=== PATIENT | female | born 1965 ===

== ENCOUNTER 2016-11-15 17:58 | Emergency (ER) | payer MEDICAID ==
[2016-11-15 18:13] VITALS: RESP 18; TEMP 98.2; BMI 27.4
[2016-11-15] MEDS ORDERED: Morphine 4 mg/ml ISec ONE (18:16)
[2016-11-15] MEDS ORDERED: Morphine 4 mg/ml ISec IM STA (18:19)
--- NOTE | 2016-11-15 18:39 | ED PDOC ---
Arrival/HPI - General Chief Complaint: Lower Extremity Problem/Injury Time Seen by Provider: 11/15/16 18:11 Historian: Patient - History of Present Illness Narrative History of Present Illness (Text): 11/15/16 18:36 this is a 51yo female who present with complaint of throbbing left leg pain s/p trauma minutes [employer]. States she slipped while coming down stairs and fell down unknown number of stairs. She notes that her left leg spread to the left, while her body landed towards the right when she fell down. She states pain radiates from her left knee to her foot. she denies LOC. Denies headache, focal weakness , urinary/fecal incontinence, nausea, vomiting, any other complaint. 11/15/16 18:38 Past Medical History - Provider Review Nursing Documentation Reviewed: Yes - Cardiac Hx Cardiac Disorders: Yes Hx Peripheral Vascular Disease: No - Pulmonary Hx Respiratory Disorders: No Hx Tuberculosis: No - Neurological Hx Migraine: Yes Hx Seizures: Yes Other/Comment: BRAIN TUMOR - HEENT Hx HEENT Disorder: No - Renal Hx Renal Disorder: No - Endocrine/Metabolic Hx Endocrine Disorders: No - Hematological/Oncological Hx Anemia: Yes - Integumentary Hx Dermatological Disorder: No - Musculoskeletal/Rheumatological Hx Arthritis: Yes Hx Back Pain: Yes Hx Fractures: Yes (LUMBAR SPINE) Other/Comment: NECK PAIN - Gastrointestinal Hx Gastrointestinal Disorders: No - Genitourinary/Gynecological Hx Genitourinary Disorders: No - Psychiatric Hx Psychophysiologic Disorder: No Hx Substance Use: No - Surgical History Hx Section: Yes Hx Hysterectomy: Yes Hx Tubal Ligation: Yes - Anesthesia Hx Anesthesia: Yes Family/Social History - Physician Review Nursing Documentation Reviewed: Yes Family/Social History: Unknown Family HX Smoking Status: Former Smoker Hx Alcohol Use: Yes Hx Substance Use: No Allergies/Home Meds Allergies/Adverse Reactions: Allergies iron Allergy (Verified 11/15/16 18:01) ANAPHYLAXIS all fruit Allergy (Uncoded 11/15/16 18:01) RASH fruit Allergy (Uncoded 11/15/16 18:01) ANAPHYLAXIS seafood Allergy (Uncoded 11/15/16 18:01) ANAPHYLAXIS Home Medications: Home Meds Medication Instructions Recorded Confirmed Acetaminophen/Oxycodone Hydr 1 tab PO Q6H PRN 05/23/16 11/15/16 [Percocet 10/325 mg Tab] Ibuprofen [Motrin] 800 mg PO Q4H PRN 05/23/16 11/15/16 Review of Systems - Physician Review All systems were reviewed & negative as marked: Yes - Review of Systems Constitutional: Normal Eyes: Normal ENT: Normal Respiratory: Normal Cardiovascular: Normal Gastrointestinal: Normal Genitourinary Female: Normal Musculoskeletal: Arthralgias (Left leg pain) Skin: Normal Neurological: Normal Endocrine: Normal Hemo/Lymphatic: Normal Psychiatric: Normal Physical Exam Vital Signs Reviewed: Yes Vital Signs Temp Pulse Resp BP Pulse Ox 11/15/16 18:13 98.2 F 94 H 18 155/100 H 100 11/15/16 18:03 98.6 F 103 H 123 H 149/81 98 Temperature: Afebrile Blood Pressure: Normal Pulse: Regular Respiratory Rate: Normal Appearance: Positive for: Well-Appearing, Non-Toxic, Comfortable Pain Distress: None Mental Status: Positive for: Alert and Oriented X 3 - Systems Exam Head: Present: Atraumatic, Normocephalic Pupils: Present: PERRL Extroacular Muscles: Present: EOMI Conjunctiva: Present: Normal Mouth: Present: Moist Mucous Membranes Neck: Present: Normal Range of Motion Respiratory/Chest: Present: Clear to Auscultation, Good Air Exchange. No: Respiratory Distress, Accessory Muscle Use Cardiovascular: Present: Regular Rate and Rhythm, Normal S1, S2. No: Murmurs Abdomen: Present: Normal Bowel Sounds. No: Tenderness, Distention, Peritoneal Signs Back: Present: Normal Inspection Upper Extremity: Present: Normal Inspection. No: Cyanosis, Edema Lower Extremity: Present: NORMAL PULSES, Tenderness (Left ankle), Swelling ( Left ankle ), Neurovascularly Intact. No: Edema, CALF TENDERNESS, Normal ROM ( Limited in all planes from the knee to the foot secondary to pain), Erythema, Deformity, Temperature Abnormalties Neurological: Present: GCS=15, CN II-XII Intact, Speech Normal Skin: Present: Warm, Dry, Normal Color. No: Rashes Psychiatric: Present: Alert, Oriented x 3, Normal Insight, Normal Concentration Medical Decision Making ED Course and Treatment: 11/15/16 21:06 IMPRESSION: - Fracture of the distal fibula, at the level of the ankle joint. - Fracture of the posterior malleolus of the distal tibia. - Abnormal widening of the medial ankle joint space. - See above for remaining findings. Case was VALENTINA Landeros. He requested posterior and U splint with plenty padding. Wants patient to call his office first thing Friday morning, so he can see her Friday. 11/15/16 21:14 Crutches was given to the patient. she was strongly instructed to F/U with Dr. Camacho klein on Friday. TRT ED if she can't reach Dr. camacho klein or for any new symptoms. - RAD Interpretation Radiology Orders: 11/15/16 18:18 ANKLE LEFT 3 VIEWS ROUTINE [RAD] Stat TIBIA FIBULA LEFT [RAD] Stat 11/15/16 18:19 FOOT LEFT 3 VIEWS ROUTINE [RAD] Stat 11/15/16 19:15 EXT LOWER W/O CONTRAST LEFT [CT] Stat - Medication Orders Current Medication Orders: Discontinued Medications Morphine Sulfate (Morphine) Confirm Administered Dose 4 mg .ROUTE .STK-MED ONE Stop: 11/15/16 18:17 Last Admin: 11/15/16 20:31 Dose: Morphine Sulfate (Morphine) 4 mg IM STAT STA Stop: 11/15/16 18:20 Last Admin: 11/15/16 18:17 Dose: 4 mg Oxycodone/Acetaminophen (Percocet 5/325 Mg Tab) 1 tab PO STAT STA Stop: 11/15/16 20:12 Last Admin: 11/15/16 20:32 Dose: 1 tab Disposition/Present on Arrival - Present on Arrival Any Indicators Present on Arrival: No History of DVT/PE: No History of Uncontrolled Diabetes: No Urinary Catheter: No History of Decub. Ulcer: No History Surgical Site Infection Following: None - Disposition Have Diagnosis and Disposition been Completed?: Yes Diagnosis: Ankle fracture Disposition: HOME/ ROUTINE Disposition Time: 21:20 Patient Plan: Discharge Condition: STABLE Discharge Instructions (ExitCare): Ankle Fracture (ED) Additional Instructions: Follow up with Dr. Camacho klein on Friday Return to ED for any new or worsening symptoms Prescriptions: oxyCODONE/Acetaminophen [Percocet 5/325 mg Tab] 1 tab PO Q6 #10 tab Referrals: Nika Dowell MD [Primary Care Provider] - Follow up with primary
[2016-11-15] MEDS ORDERED: Oxycodone/Acetaminophen 5/325 mg Tab PO STA (20:11)
--- NOTE | 2016-11-15 20:36 | CT ---
EXAM: CT Left Lower Extremity Without Intravenous Contrast, Ankle CLINICAL HISTORY: 51 years old, female; Injury or trauma; Fall; Initial encounter; Blunt trauma; Ankle; Left; Additional info: Left ankle fracture TECHNIQUE: Axial computed tomography images of the left ankle without intravenous contrast. This CT exam was performed using one or more of the following dose reduction techniques: automated exposure control, adjustment of the mA and/or kV according to patient size, and/or use of iterative reconstruction technique. Coronal and sagittal reformatted images were created and reviewed. EXAM DATE/TIME: 11/15/2016 7:15 PM COMPARISON: Recent radiographs of the left lower leg, dated 11/15/2016 6:35 PM FINDINGS: BONES/JOINTS: Acute oblique fracture of the distal fibula, located at the level of the ankle joint, and extending proximally and posteriorly within the distal fibula. This is comminuted and mildly displaced. Acute fracture of the posterior malleolus of the distal tibia. This is coronally oriented, and is not significantly displaced. Abnormal widening of the medial ankle joint space, which measures up to 1 cm in width. No additional acute fractures seen. SOFT TISSUES: Diffuse soft tissue swelling about the ankle, greatest anterolaterally. No evidence of soft tissue hematoma. IMPRESSION: - Fracture of the distal fibula, at the level of the ankle joint. - Fracture of the posterior malleolus of the distal tibia. - Abnormal widening of the medial ankle joint space. - See above for remaining findings.
[2016-11-15 21:54] VITALS: BP 152/99; PULSE 91; O2SAT 99
--- NOTE | 2016-11-16 07:02 | RAD ---
HISTORY: leg pain s/p trauma COMPARISON: No prior FINDINGS: BONES: Normal. No fracture. JOINTS: Normal. No osteoarthritis. SOFT TISSUE: Normal. OTHER FINDINGS: None . IMPRESSION: Normal Bone Xray.
--- NOTE | 2016-11-16 07:07 | RAD ---
HISTORY: ankle pain s/p trauma COMPARISON: No prior FINDINGS: BONES: Distal fibular fracture, with minimal displacement. JOINTS: Normal. No osteoarthritis. SOFT TISSUE: Normal. OTHER FINDINGS: None . IMPRESSION: Distal fibular fracture.
--- NOTE | 2016-11-16 07:15 | RAD ---
PROCEDURE: Left Foot Radiographs. HISTORY: foot pain s/p truama COMPARISON: None. FINDINGS: BONES: Normal. No fracture. JOINTS: Normal. SOFT TISSUES: Normal. OTHER FINDINGS: None. IMPRESSION: Normal left foot radiographs.
== END 2016-11-15 22:00 | disposition home or self-care (01) ==
LOC: ED 17:58
DX: S82.892A Other fracture of left lower leg, initial encounter for closed fracture (principal); Y92.89 Other specified places as the place of occurrence of the external cause; W10.8XXA Fall (on) (from) other stairs and steps, initial encounter
CPT/HCPCS: 73590; 73610; 73630; 73700; 96372; 99284; J2270